=== PATIENT | female | born 1995 | race Caucasian/White ===

== ENCOUNTER 2016-10-09 19:18 | Emergency (ER) | payer OTHER ==
[2016-10-09 20:07] VITALS: BP 134/74
== END 2016-10-09 20:07 | disposition home or self-care (01) ==
LOC: ED 19:18
DX: S69.92XA Unspecified injury of left wrist, hand and finger(s), initial encounter (principal); W22.8XXA Striking against or struck by other objects, initial encounter; Y93.89 Activity, other specified; Y99.8 Other external cause status; Y92.89 Other specified places as the place of occurrence of the external cause

== ENCOUNTER 2020-03-15 20:33 | Emergency (ER) | payer OTHER ==
[~2020-03-15] VITALS: Ht 170.2 cm; Wt 86.6 kg
[2020-03-15 20:41] VITALS: Ht 170.2 cm; Wt 86.6 kg
[2020-03-15 21:54] VITALS: BP 118/72
== END 2020-03-15 21:54 | disposition home or self-care (01) ==
LOC: ED 20:33
DX: L50.0 Allergic urticaria (principal)
CPT/HCPCS: J7512

== ENCOUNTER 2020-03-16 21:33 | Emergency (ER) | payer OTHER ==
[~2020-03-16] VITALS: Ht 170.2 cm; Wt 87.5 kg
[2020-03-16 21:44] VITALS: Ht 170.2 cm; Wt 87.5 kg
[2020-03-16 22:28] VITALS: BP 129/80
== END 2020-03-16 22:28 | disposition home or self-care (01) ==
LOC: ED 21:33
DX: L50.0 Allergic urticaria (principal)

== ENCOUNTER 2020-07-31 00:50 | Emergency (ER) | payer OTHER ==
[~2020-07-31] VITALS: Ht 172.7 cm; Wt 92.1 kg
[2020-07-31 00:58] VITALS: Ht 172.7 cm; Wt 92.1 kg
[2020-07-31 02:33] VITALS: BP 144/88
== END 2020-07-31 02:33 | disposition home or self-care (01) ==
LOC: ED 00:50
DX: M54.6 Pain in thoracic spine (principal)
CPT/HCPCS: 72072